=== PATIENT | female | born 1960 | race Caucasian/White ===

== ENCOUNTER 2021-07-29 10:14 | Outpatient (CLI) | payer OTHER | END 2021-07-29 10:17 | disposition home or self-care (01) | LOC: SONOGRAMA 10:14 | PROVIDERS: ATTEND Pathology Anatomic Pathology & Clinical Pathology | DX: D34 Benign neoplasm of thyroid gland (principal); E04.8 Other specified nontoxic goiter; E06.5 Other chronic thyroiditis ==